=== PATIENT | female | born 1935 | race Caucasian/White ===

== ENCOUNTER 2016-04-10 01:30 | Inpatient (IN) | payer MEDICARE ==
[2016-04-10] VITALS (12 sets, daily range): BP systolic 146–202; BP diastolic 67–123; PULSE 83–104; RESP 15–27; TEMP 97.8–98.2; O2SAT 88–98
[~2016-04-10] VITALS: Ht 149.9 cm; Wt 65.5 kg
--- NOTE | 2016-04-10 02:13 | PD ---
HPI Chief Complaint: Respiratory Distress Time Seen by Provider: 01:55 Travel History International Travel<30 days: No Contact w/Intl Traveler<30days: No Traveled to known affect area: No History of Present Illness HPI Patient is a 81-year-old female with history of A. fib, hypertension, and hyperlipidemia and possibly COPD, presents to emergency room with complaints of shortness of breath. Patient reports that for the past 4 days, she has been having increased shortness of breath. Reports that she is short of breath at rest as well as exertion. Reports that she has been wheezing for the past 4 days. Reports that she flew in from [place] today, reports that she began coughing, reports productive cough since today. Patient denies fevers or chills. Reports no chest pain. Reports that she used to be a past smoker, reports that she may possibly have COPD. Patient reports that she has been wheezing diffusely for the past 4 days, reports that nothing has made her symptoms better or worse. Reports no sick contacts. Patient does not use oxygen at home [facility] Social History Alcohol Use: No Tobacco Use: No Allergies-Medications (Allergen,Severity, Reaction): Coded Allergies: Amoxicillin (Verified Allergy, Severe, 04/10/16) Levaquin (Verified Allergy, Severe, 04/10/16) Reported Meds & Prescriptions Reported Meds & Active Scripts Active Reported Hydrocodone-Acetaminophen 5-325 mg Tab 1 Tab PO Q6HR PRN Warfarin 1 Mg Tab Unknown Dose PO DIRECTED Crestor (Rosuvastatin Calcium) 5 Mg Tab 5 Mg PO EVERY OTHER DAY Digox (Digoxin) 0.125 Mg Tab 0.125 Mcg PO EVERY OTHER DAY Furosemide 20 Mg Tab 20 Mg PO DAILY Valsartan 160 Mg Tab 160 Mg PO DAILY Diltiazem (Diltiazem HCl) 120 Mg Tab 240 Mg PO DAILY Review of Systems General / Constitutional: No: Fever, Chills Eyes: No: Visual changes HENT: No: Headaches Cardiovascular: No: Chest Pain or Discomfort Respiratory: Positive: Cough, Shortness of Breath, Wheezing Gastrointestinal: No: Abdominal Pain Genitourinary: No: Dysuria Musculoskeletal: No: Pain Skin: No Rash Neurologic: No: Weakness Psychiatric: No: Depression Endocrine: No: Polydipsia Hematologic/Lymphatic: No: Easy Bruising Physical Exam Narrative GENERAL: Patient with moderate distress SKIN: Warm and dry. HEAD: Atraumatic. Normocephalic. EYES: Pupils equal and round. No scleral icterus. No injection or drainage. ENT: No nasal bleeding or discharge. Mucous membranes pink and moist. NECK: Trachea midline. No JVD. CARDIOVASCULAR: Irregular irregular, tachycardic. No murmur appreciated. RESPIRATORY: Patient wheezing diffusely on exam. Clear to auscultation. Breath sounds equal bilaterally. GASTROINTESTINAL: Abdomen soft, non-tender, nondistended. Hepatic and splenic margins not palpable. MUSCULOSKELETAL: No obvious deformities. No clubbing. No cyanosis. No edema. NEUROLOGICAL: Awake and alert. No obvious cranial nerve deficits. Motor grossly within normal limits. Normal speech. PSYCHIATRIC: Appropriate mood and affect; insight and judgment normal. Data Data Last Documented VS Vital Signs Date Time Temp Pulse Resp B/P Pulse Ox O2 Delivery O2 Flow Rate FiO2 04/10/16 04:30 83 16 163/72 95 Room Air 04/10/16 02:29 2 04/10/16 01:44 97.8 Orders Complete Blood Count With Diff (04/10/16 02:01) Comprehensive Metabolic Panel (04/10/16 02:01) B-Type Natriuretic Peptide (04/10/16 02:01) Act Partial Throm Time (Ptt) (04/10/16 02:01) Prothrombin Time / Inr (Pt) (04/10/16 02:01) Magnesium (Mg) (04/10/16 02:01) Ckmb (Isoenzyme) Profile (04/10/16 02:01) Troponin I (04/10/16 02:01) Urinalysis - C+S If Indicated (04/10/16 02:01) Influenzae A/B Antigen (04/10/16 02:01) Blood Culture (04/10/16 02:01) Iv Access Insert/Monitor (04/10/16 02:01) Ecg Monitoring (04/10/16 02:01) Oximetry (04/10/16 02:01) Oxygen Administration (04/10/16 02:01) Chest, Single Ap (04/10/16 02:01) Sodium Chloride 0.9% Flush (Ns Flush) (04/10/16 02:15) Methylprednisolone So Succ Inj (Solumedr (04/10/16 02:15) Albuterol-Ipratropium Neb (Duoneb Neb) (04/10/16 02:15) Sodium Chlorid 0.9% 500 Ml Inj (Ns 500 M (04/10/16 02:15) Aztreonam Inj (Azactam Inj) (04/10/16 04:30) Azithromycin Inj (Zithromax Inj) (04/10/16 04:30) Admit Order (Ed Use Only) (04/10/16 04:33) Labs Laboratory Tests Test 04/10/16 04/10/16 02:21 03:30 White Blood Count 8.0 TH/MM3 Red Blood Count 4.29 MIL/MM3 Hemoglobin 14.2 GM/DL Hematocrit 43.0 % Mean Corpuscular Volume 100.1 FL Mean Corpuscular Hemoglobin 33.2 PG Mean Corpuscular Hemoglobin 33.1 % Concent Red Cell Distribution Width 13.3 % Platelet Count 161 TH/MM3 Mean Platelet Volume 10.1 FL Neutrophils (%) (Auto) 63.3 % Lymphocytes (%) (Auto) 18.0 % Monocytes (%) (Auto) 8.2 % Eosinophils (%) (Auto) 9.4 % Basophils (%) (Auto) 1.1 % Neutrophils # (Auto) 5.1 TH/MM3 Lymphocytes # (Auto) 1.4 TH/MM3 Monocytes # (Auto) 0.7 TH/MM3 Eosinophils # (Auto) 0.8 TH/MM3 Basophils # (Auto) 0.1 TH/MM3 CBC Comment DIFF FINAL Differential Comment Prothrombin Time 25.4 SEC Prothromb Time International 2.2 RATIO Ratio Activated Partial 40.8 SEC Thromboplast Time Sodium Level 141 MEQ/L Potassium Level 4.0 MEQ/L Chloride Level 107 MEQ/L Carbon Dioxide Level 25.5 MEQ/L Anion Gap 9 MEQ/L Blood Urea Nitrogen 20 MG/DL Creatinine 0.90 MG/DL Estimat Glomerular Filtration 60 ML/MIN Rate Random Glucose 119 MG/DL Calcium Level 10.1 MG/DL Magnesium Level 2.0 MG/DL Total Bilirubin 0.6 MG/DL Aspartate Amino Transf 17 U/L (AST/SGOT) Alanine Aminotransferase 24 U/L (ALT/SGPT) Alkaline Phosphatase 70 U/L Total Creatine Kinase 53 U/L Troponin I LESS THAN 0.02 NG/ML B-Type Natriuretic Peptide 489 PG/ML Total Protein 7.2 GM/DL Albumin 4.2 GM/DL Urine Color YELLOW Urine Turbidity CLEAR Urine pH 5.5 Urine Specific [place] 1.023 Urine Protein 30 mg/dL Urine Glucose (UA) NEG mg/dL Urine Ketones TRACE mg/dL Urine Occult Blood TRACE Urine Nitrite NEG Urine Bilirubin NEG Urine Urobilinogen LESS THAN 2.0 MG/DL Urine Leukocyte Esterase SMALL Urine RBC 3 /hpf Urine WBC 9 /hpf Urine Squamous Epithelial 1 /hpf Cells Urine Bacteria RARE /hpf Urine Hyaline Casts 1 /lpf Urine Mucus FEW /lpf Microscopic Urinalysis Comment CULTURE INDICATED MDM Medical Decision Making Medical Screen Exam Complete: Yes Emergency Medical Condition: Yes Interpretation(s) EKG: afib at 89bpm, qt/qtc: 306/353 Vital Signs Date Time Temp Pulse Resp B/P Pulse Ox O2 Delivery O2 Flow Rate FiO2 04/10/16 01:44 97.8 88 27 196/111 90 Differential Diagnosis pneumonia, copd exacerbation, acs, electrolyte abnormality, influenza Narrative Course 81 year old female who presents to ER with c/o of 4 days of wheezing and sob. Pt with questionable history of COPD. On exam, pt hypoxic with pulse ox of 88-89% on room air, patient wheezing diffusely. Patient most likely with COPD exacerbation with questionable pneumonia EKG, labs, x-ray chest as well as blood cultures obtained. Plan to give patient IV fluids, IV steroids as well as neb treatments, will re- evaluate patient after treatment. Patient reevaluated, reviewed all labs and all studies with patient. Patient reports that she still does not feel well, patient is not comfortable going home. Discussed with her that I will admit her for pneumonia as well as hypoxia as pt was sating 88-89%on room air - she does not use home O2 case reviewed with dr al who accepts pt to service Diagnosis Primary Impression: Pneumonia Qualified Code: J18.9 - Pneumonia of both upper lobes due to infectious organism Additional Impressions: Hypoxia COPD with exacerbation Admitting Information Admitting Physician Requests: Admit Mary Nicole DO Apr 10, 2016 02:13
[2016-04-10] MEDS ORDERED: methylPREDNISolone SOD SUCC 125 MG/2 ML VIAL IVP ONE (02:15)
[2016-04-10] MEDS ORDERED: SODIUM CHLORIDE 0.9% FLUSH 5 ML FLUSH IVF PRN (02:15)
[2016-04-10] MEDS ORDERED: SODIUM CHLORID 0.9% 500 ML INJ 500 ML IV ONE (02:15)
--- NOTE | 2016-04-10 02:22 | RADRPT ---
EXAM DATE/TIME: 04/10/2016 02:14 [facility] COMPARISON: No previous studies available for comparison. INDICATIONS : Pt short of breath. MEDICAL HISTORY : None. SURGICAL HISTORY : None. ENCOUNTER: Initial ACUITY: 1 day PAIN SCORE: 8/10 LOCATION: Bilateral chest FINDINGS: The heart is moderately enlarged. There is indistinctness and fullness of the perihilar region bilat erally suggesting bilateral perihilar infiltrates. No peripheral infiltrate seen. Hyperdensity supe rimposed upon the central mediastinum measuring 1.8 cm, probably representing a calcified mediastinal node. Both hemidiaphragms are well delineated. CONCLUSION: Bilateral perihilar infiltrates, right greater than left. Moderate cardiomegaly. David Christiansen MD on April 10, 2016 at 2:20 Board Certified Radiologist. This report was verified electronically.
[2016-04-10 02:43] LABS: AUTOMATED NEUTROPHIL # 5.1 TH/MM3 (1.8-7.7); BASOPHIL # 0.1 TH/MM3 (0-0.2); BASOPHIL % 1.1 % (0.0-2.0); EOSINOPHIL # 0.8 TH/MM3 (0-0.4); EOSINOPHIL % 9.4 % (0.0-4.0); HEMO FLAGS DIFF FINAL; LYMPHOCYTE # 1.4 TH/MM3 (1.0-4.8); MEAN CELL VOLUME 100.1 FL (80.0-100.0); MEAN CORPUSCULAR HEMOGLOBIN 33.2 PG (27.0-34.0); MEAN CORPUSCULAR HGB CONC 33.1 % (32.0-36.0); MONO % 8.2 % (0.0-8.0); NEUT % 63.3 % (16.0-70.0); PLATELET COUNT 161 TH/MM3 (150-450); RED BLOOD COUNT 4.29 MIL/MM3 (4.00-5.30); RED CELL DISTRIBUTION WIDTH 13.3 % (11.6-17.2)
[2016-04-10] MEDS: RESP: ALBUTEROL 2.5 MG/IPRATROPIUM 0.5 MG NEB (SCH) INH (02:53)
[2016-04-10 03:01] LABS: APTT (PATIENT) 40.8 SEC (24.3-30.1); INTERNATIONAL NORMALIZED RATIO 2.2 RATIO; PROTHROMBIN TIME - PATIENT 25.4 SEC (9.8-11.6)
[2016-04-10 03:06] LABS: ALT (GPT) 24 U/L (10-53); ANION GAP 9 MEQ/L (5-15); AST (GOT) 17 U/L (15-37); BICARBONATE 25.5 MEQ/L (21.0-32.0); BLOOD UREA NITROGEN 20 MG/DL (7-18); CHLORIDE 107 MEQ/L (98-107); GLOMERULAR FILTRATION RATE 60 ML/MIN (>89); SODIUM (NA) 141 MEQ/L (136-145)
[2016-04-10 03:10] LABS: ALKALINE PHOSPHATASE 70 U/L (45-117); TOTAL BILIRUBIN ADULT 0.6 MG/DL (0.2-1.0)
[2016-04-10] MEDS ORDERED: VALS1TAB65 PO (03:57)
[2016-04-10] MEDS ORDERED: DIGO0.127 PO (03:57)
[2016-04-10] MEDS ORDERED: HYDR-3516 PO (03:57)
[2016-04-10] MEDS ORDERED: ROSU5 PO (03:57)
[2016-04-10] MEDS ORDERED: FURO20TA PO (03:57)
[2016-04-10] MEDS ORDERED: DILT120T PO (03:57)
[2016-04-10] MEDS ORDERED: WARF4TAB52 PO (03:57)
[2016-04-10 04:09] LABS: CREATINE KINASE 53 U/L (26-192)
[2016-04-10] MEDS ORDERED: AZITHROMYCIN INJ 500 MG in SODIUM CHLOR 0.9% 250 ML INJ 250 ML IV ONE (04:30)
[2016-04-10] MEDS ORDERED: AZTREONAM INJ 2,000 MG in SODIUM CHLORIDE 0.9% INJ 100 ML IV ONE (04:30)
[2016-04-10 04:39] LABS: BACTERIA, URINE RARE /hpf; BLOOD, URINE TRACE (NEG); COMMENT (UR) CULTURE INDICATED; CULTURE IF INDICATED CULTURE INDICATED; GLUCOSE,URINE NEG (NEG); HYALINE CAST, URINE 1 /lpf (RARE); KETONE, URINE TRACE mg/dL (NEG); MUCUS URINE FEW /lpf (OCC); NITRITE,URINE NEG (NEG); PH, URINE 5.5 (5.0-8.5); SQUAMOUS EPITHELIAL CELL URINE 1 /hpf (0-5); URINE COLOR YELLOW (YELLW/STRAW)
[2016-04-10] MEDS ORDERED: RESP: ALBUTEROL 2.5 MG/IPRATROPIUM 0.5 MG NEB (PRN) NEB (04:45)
[2016-04-10] MEDS ORDERED: ONDANSETRON HCL 4 MG/2 ML VIAL IVP PRN (04:45)
[2016-04-10] MEDS ORDERED: BISACODYL 10 MG SUPP PR PRN (04:45)
[2016-04-10] MEDS ORDERED: ACETAMINOPHEN/HYDROcodone 325 MG/5 MG TAB PO PRN (04:45)
[2016-04-10] MEDS ORDERED: ACETAMINOPHEN 325 MG TAB PO PRN (04:45)
[2016-04-10] MEDS ORDERED: SODIUM CHLORIDE 0.9% FLUSH 5 ML FLUSH FLUSH PRN (04:45)
[2016-04-10] MEDS ORDERED: ACETAMINOPHEN/HYDROcodone 325 MG/10 MG TAB PO PRN (04:45)
--- NOTE | 2016-04-10 05:47 | HHI.HP ---
[facility] Service [facility] Primary Care Physician Non-Staff Admission Diagnosis multilobar pneumonia Diagnoses: (1) COPD (chronic obstructive pulmonary disease) Diagnosis: Principal (2) PNA (pneumonia) Diagnosis: Principal (3) Hypoxia Diagnosis: Principal (4) UTI (urinary tract infection) Diagnosis: Principal (5) A-fib Diagnosis: Principal Travel History International Travel<30 Days: No Contact w/Intl Traveler <30 Da: No Traveled to Known Affected Are: No History of Present Illness This is a 81-year-old female with a PMH of A. nicko on Coumadin, HTN, Hyperlipidemia and COPD who was brought to the ER with complaints of SOB x4 days. Notes associated wheezing and productive cough w/ yellow colored sputum. Denies fever or chills. On arrival, BP 196/111, HR 80, O2 sat 88% on RA, Afebrile. Currently BP 163/72, HR 83, O2 sat 95% on RA. CBC essentially unremarkable. Chemistry essentially unremarkable except for mildly elevated BUN. BNP 49. Troponin negative. UA with UTI. CXR bilateral perihilar infiltrates. S/p Blood Cultures, Zithr/Azactam in ER. Review of Systems Other ROS: 14 point review of systems otherwise negative. Past Family Social History Past Medical History PMH: Reese. nicko on Coumadin, HTN, Hyperlipidemia and COPD Past Surgical History PAST SURGICAL HISTORY: Lumbar Laminectomy Allergies: Coded Allergies: Amoxicillin (Verified Allergy, Severe, 04/10/16) Levaquin (Verified Allergy, Severe, 04/10/16) Family History PAST FAMILY HISTORY: Reviewed. No h/o DM or CAD Social History PAST SOCIAL HISTORY: Negative for alcohol, tobacco or drugs. Physical Exam Vital Signs Vital Signs Date Time Temp Pulse Resp B/P Pulse Ox O2 Delivery O2 Flow Rate FiO2 04/10/16 04:30 83 16 163/72 95 Room Air 04/10/16 03:40 98 17 194/123 97 Room Air 04/10/16 02:29 95 Nasal Cannula 2 04/10/16 02:29 102 18 202/87 94 Nasal Cannula 2 04/10/16 01:44 97.8 88 27 196/111 90 1/7/17 01:40 88 Room Air Physical Exam PE: GENERAL: Elderly white female in no acute distress. HEENT: PERRLA, EOMI. No scleral icterus or conjunctival pallor. No lid lag or facial droop. CARDIOVASCULAR: Irregular irregular. No obvious murmurs to auscultation. No chest tenderness to palpation. RESPIRATORY: No obvious rhonchi. Occasional wheezing. Clear to auscultation. Breath sounds equal bilaterally. GASTROINTESTINAL: Abdomen soft, non-tender, nondistended. BS normal. MUSCULOSKELETAL: Extremities without clubbing, cyanosis, or edema. No obvious deformities. NEUROLOGICAL: Awake, alert. No focal neurologic deficits. Moving both upper and lower extremities spontaneously. Laboratory Laboratory Tests Test 04/10/16 04/10/16 02:21 03:30 White Blood Count 8.0 Red Blood Count 4.29 Hemoglobin 14.2 Hematocrit 43.0 Mean Corpuscular Volume 100.1 Mean Corpuscular Hemoglobin 33.2 Mean Corpuscular Hemoglobin 33.1 Concent Red Cell Distribution Width 13.3 Platelet Count 161 Mean Platelet Volume 10.1 Neutrophils (%) (Auto) 63.3 Lymphocytes (%) (Auto) 18.0 Monocytes (%) (Auto) 8.2 Eosinophils (%) (Auto) 9.4 Basophils (%) (Auto) 1.1 Neutrophils # (Auto) 5.1 Lymphocytes # (Auto) 1.4 Monocytes # (Auto) 0.7 Eosinophils # (Auto) 0.8 Basophils # (Auto) 0.1 CBC Comment DIFF FINAL Differential Comment Prothrombin Time 25.4 Prothromb Time International 2.2 Ratio Activated Partial 40.8 Thromboplast Time Sodium Level 141 Potassium Level 4.0 Chloride Level 107 Carbon Dioxide Level 25.5 Anion Gap 9 Blood Urea Nitrogen 20 Creatinine 0.90 Estimat Glomerular Filtration 60 Rate Random Glucose 119 Calcium Level 10.1 Magnesium Level 2.0 Total Bilirubin 0.6 Aspartate Amino Transf 17 (AST/SGOT) Alanine Aminotransferase 24 (ALT/SGPT) Alkaline Phosphatase 70 Total Creatine Kinase 53 Troponin I LESS THAN 0.02 B-Type Natriuretic Peptide 489 Total Protein 7.2 Albumin 4.2 Urine Color YELLOW Urine Turbidity CLEAR Urine pH 5.5 Urine Specific [place] 1.023 Urine Protein 30 Urine Glucose (UA) NEG Urine Ketones TRACE Urine Occult Blood TRACE Urine Nitrite NEG Urine Bilirubin NEG Urine Urobilinogen LESS THAN 2.0 Urine Leukocyte Esterase SMALL Urine RBC 3 Urine WBC 9 Urine Squamous Epithelial 1 Cells Urine Bacteria RARE Urine Hyaline Casts 1 Urine Mucus FEW Microscopic Urinalysis Comment CULTURE INDICATED Date/Time Procedure Status Source Growth 04/10/16 03:30 Urine Culture Received Urine Clean Catch Pending 04/10/16 02:21 Influenza Types A,B Antigen (RISHABH) Received Nasal Aspirate Pending 04/10/16 02:00 Aerobic Blood Culture Received Blood Peripheral Pending 04/10/16 02:00 Anaerobic Blood Culture Received Blood Peripheral Pending Result Diagram: 04/10/1622004/10/16220 Assessment and Plan Problem List: (1) COPD (chronic obstructive pulmonary disease) ICD Code: J44.9 Status: Acute (2) PNA (pneumonia) ICD Code: J18.9 Status: Acute (3) Hypoxia ICD Code: R09.02 Status: Acute (4) UTI (urinary tract infection) ICD Code: N39.0 Status: Acute (5) A-fib ICD Code: I48.91 Status: Acute Assessment and Plan A/P: 1. COPD: Chronic Respiratory Failure w/ Acute Exacerbation. +wheezing, hypoxia. Solu-Medrol, DuoNeb, Symbicort, Mucinex. Check Sputum Cultures. 2. PNA: CXR w/ bilateral perihilar infiltrates, images reviewed by me. S/p Zithro/Azactam in ER. Continue w/ IV Abx, DuoNeb. 3. Hypoxia: Secondary to above, O2 sat 88% on RA upon arrival, currently 95-97 % on RA. 4. UTI: U/a w/ UTI. Continue w/ IV Abx as above for urinary coverage. 5. A-fib: Chronic. On Coumadin. Resume home Digoxin, Diltiazem and Coumadin. INR therapeutic at 2.2. 6. DVT Prophylaxis: On Coumadin as above. 7. Social work for DC planning as needed. 8. Case discussed at length with ER physician. Physician Certification 2 Midnight Certification Type: Admission for Inpatient Services Order for Inpatient Services The services are ordered in accordance with Medicare regulations or non- Medicare payer requirements, as applicable. In the case of services not specified as inpatient-only, they are appropriately provided as inpatient services in accordance with the 2-midnight benchmark. Estimated LOS (days): 2 days is the estimated time the patient will need to remain in the hospital, assuming treatment plan goals are met and no additional complications. Post-Hospital Plan: Not yet determined Sandee Granado MD Apr 10, 2016 05:47
[2016-04-10] MEDS: methylPREDNISolone SOD SUCC 40 MG/1 ML VIAL IV PUSH SCH ×3 (05:52→19:08)
[2016-04-10] MEDS: RESP: ALBUTEROL 2.5 MG/IPRATROPIUM 0.5 MG NEB (SCH) NEB ×4 (06:04→20:13)
[2016-04-10] MEDS ORDERED: DIGOXIN 0.125 MG TAB PO SCH (09:00)
[2016-04-10] MEDS ORDERED: ATORVASTATIN 10 MG TAB PO SCH (09:00)
[2016-04-10] MEDS: FUROSEMIDE 20 MG TAB PO SCH (09:59)
[2016-04-10] MEDS: VALSARTAN 160 MG TAB PO SCH (09:59)
[2016-04-10] MEDS: DILTIAZEM-CD 240 MG CAP ER PO SCH (09:59)
[2016-04-10] MEDS: BUDESONIDE-FORMOTEROL 160/4.5 MCG INHALER INH SCH ×2 (09:59→20:58)
[2016-04-10] MEDS: guaiFENesin E.R. 600 MG TAB PO SCH ×2 (09:59→20:57)
[2016-04-10] MEDS: SODIUM CHLORIDE 0.9% FLUSH 5 ML FLUSH FLUSH SCH ×2 (10:00→20:58)
[2016-04-10] MEDS: AZTREONAM INJ 1,000 MG in SODIUM CHLORIDE 0.9% INJ 100 ML IV SCH ×2 (13:08→20:57)
--- NOTE | 2016-04-10 14:34 | EKG ---
Date Performed: 04/10/2016 Time Performed: 01:57:36 PTAGE: 81 years EKG: ATRIAL FIBRILLATION ANTEROSEPTAL MYOCARDIAL INFARCTION Undulating baseline ABNORMAL ECG NO PREVIOUS TRACING DOCTOR: Fran Mc Interpretating Date/Time 04/10/2016 14:34:08
[2016-04-11] VITALS: BP 141/78; PULSE 97; RESP 20; TEMP 97.9; O2SAT 95
[2016-04-11] MEDS: methylPREDNISolone SOD SUCC 40 MG/1 ML VIAL IV PUSH SCH ×3 (00:13→12:14)
[2016-04-11] MEDS: AZTREONAM INJ 1,000 MG in SODIUM CHLORIDE 0.9% INJ 100 ML IV SCH ×2 (03:57→12:14)
[2016-04-11 04:00] VITALS: BP 161/78; PULSE 88; RESP 20; TEMP 97.5; O2SAT 93
[2016-04-11] MEDS ORDERED: AZITHROMYCIN INJ 500 MG in SODIUM CHLOR 0.9% 250 ML INJ 250 ML IV SCH (05:00)
[2016-04-11 08:00] VITALS: BP 136/65; PULSE 85; RESP 17; TEMP 97.4; O2SAT 94
[2016-04-11] MEDS: RESP: ALBUTEROL 2.5 MG/IPRATROPIUM 0.5 MG NEB (SCH) NEB ×2 (08:11→11:36)
[2016-04-11 08:46] LABS: BASOPHIL % 0.2 % (0.0-2.0); HEMO FLAGS DIFF FINAL; LYMPH % 2.8 % (9.0-44.0); LYMPHOCYTE # 0.4 TH/MM3 (1.0-4.8); MEAN CELL VOLUME 98.5 FL (80.0-100.0); MEAN CORPUSCULAR HEMOGLOBIN 32.9 PG (27.0-34.0); MEAN CORPUSCULAR HGB CONC 33.4 % (32.0-36.0); MONO % 2.8 % (0.0-8.0); NEUT % 94.2 % (16.0-70.0); PLATELET COUNT 152 TH/MM3 (150-450); RED BLOOD COUNT 3.86 MIL/MM3 (4.00-5.30); RED CELL DISTRIBUTION WIDTH 13.6 % (11.6-17.2); WHITE BLOOD COUNT 13.8 TH/MM3 (4.0-11.0)
[2016-04-11 08:54] LABS: INTERNATIONAL NORMALIZED RATIO 2.4 RATIO; PROTHROMBIN TIME - PATIENT 27.5 SEC (9.8-11.6)
[2016-04-11] MEDS: BUDESONIDE-FORMOTEROL 160/4.5 MCG INHALER INH SCH (09:00)
[2016-04-11] MEDS: VALSARTAN 160 MG TAB PO SCH (09:00)
[2016-04-11] MEDS: FUROSEMIDE 20 MG TAB PO SCH (09:00)
[2016-04-11] MEDS: guaiFENesin E.R. 600 MG TAB PO SCH (09:00)
[2016-04-11] MEDS: SODIUM CHLORIDE 0.9% FLUSH 5 ML FLUSH FLUSH SCH (09:00)
[2016-04-11] MEDS: DILTIAZEM-CD 240 MG CAP ER PO SCH (09:00)
[2016-04-11 09:18] LABS: ALKALINE PHOSPHATASE 60 U/L (45-117); ALT (GPT) 37 U/L (10-53); ANION GAP 11 MEQ/L (5-15); AST (GOT) 34 U/L (15-37); BICARBONATE 24.3 MEQ/L (21.0-32.0); BLOOD UREA NITROGEN 22 MG/DL (7-18); CHLORIDE 107 MEQ/L (98-107); GLOMERULAR FILTRATION RATE 59 ML/MIN (>89); SODIUM (NA) 142 MEQ/L (136-145); TOTAL BILIRUBIN ADULT 0.5 MG/DL (0.2-1.0)
[2016-04-11] MEDS ORDERED: INFLUENZA VIRUS VACCINE (QUADRIVALENT) 0.5 ML SYR IM ONE (10:00)
[2016-04-11 12:00] VITALS: BP 153/71; PULSE 98; RESP 19; TEMP 97.4; O2SAT 96
[2016-04-11] MEDS ORDERED: FURO40TA PO (14:13)
[2016-04-11] MEDS ORDERED: SYMB160A INH (14:13)
[2016-04-11] MEDS ORDERED: DOXY100C PO (14:13)
[2016-04-11] MEDS ORDERED: PRED20 PO (14:13)
[2016-04-11] MEDS ORDERED: AZIT250T3 PO (14:13)
--- NOTE | 2016-04-11 14:24 | HHI.PR ---
Subjective Remarks Patient seen in follow-up for COPD exacerbation, hypoxia, pneumonia. She reports that she is feeling much better. Currently on room air. Breathing comfortably. Comfortable with finishing treatment at home. Objective Vitals Vital Signs Date Time Temp Pulse Resp B/P Pulse Ox O2 Delivery O2 Flow Rate FiO2 04/11/16 12:00 97.4 98 19 153/71 96 04/11/16 08:00 Room Air 04/11/16 08:00 97.4 85 17 136/65 94 04/11/16 04:00 97.5 88 20 161/78 93 04/11/16 00:00 97.9 97 20 141/78 95 04/10/16 20:09 101 04/10/16 20:00 98.2 100 20 147/73 93 04/10/16 19:45 Room Air 04/10/16 15:00 98.2 89 18 161/75 96 I/O 04/10/16 04/10/16 04/10/16 04/11/16 04/11/16 04/11/16 07:00 15:00 23:00 07:00 15:00 23:00 Intake Total 706 ml 220 ml 120 ml Balance 706 ml 220 ml 120 ml Intake Oral 340 ml 220 ml 120 ml IV Total 366 ml # Voids 1 2 2 1 # Bowel Movements 1 0 0 Result Diagram: 04/11/16 0800 04/11/16 0800 Imaging Last Impressions Chest X-Ray 04/10/16 0201 Signed Impressions: Service Date/Time: Sunday, April 10, 2016 02:14 - CONCLUSION: Bilateral perihilar infiltrates, right greater than left. Moderate cardiomegaly. David Christiansen MD Objective Remarks GENERAL: This is a well-nourished, well-developed patient, in no apparent distress. CARDIOVASCULAR: Normal rate and regular rhythm without murmurs, gallops, or rubs. RESPIRATORY: Diminished breath sounds at the bases. Clear to auscultation bilaterally except for very faint wheezing. GASTROINTESTINAL: Abdomen soft, non-tender, non-distended. Normal active bowel sounds MUSCULOSKELETAL: Extremities without cyanosis, or edema. NEURO: Alert & Oriented x4 to person, place, time, situation. Moves all ext x4 PSYCH: Appropriate mood and affect. A/P Problem List: (1) COPD (chronic obstructive pulmonary disease) ICD Code: J44.9 Status: Acute (2) PNA (pneumonia) ICD Code: J18.9 Status: Acute (3) Hypoxia ICD Code: R09.02 Status: Acute (4) UTI (urinary tract infection) ICD Code: N39.0 Status: Acute (5) A-fib ICD Code: I48.91 Status: Acute Assessment and Plan 81-year-old female with: COPD exacerbation secondary to pneumonia: Patient presented with wheezing, hypoxia and evidence of pneumonia on chest x-ray. She quickly improved with steroids, antibiotics, and oxygen support. Patient is on room air and breathing comfortably. She feels good to go home. She is stable for discharge. - Patient is discharged to complete treatment with antibiotics on doxycycline and azithromycin. - She should be on a maintenance medication. She is discharged on Symbicort. Chronic atrial fibrillation: Continue home dose digoxin, diltiazem and Coumadin. Congestive heart failure with mild exacerbation: BNP elevated at 489. Mild bilateral lower extremity edema. Advised the patient to increase Lasix to 40 mg daily. She is advised to follow-up with her primary care physician and monitor her fluid intake and weight. Discharge home in good condition Diet: Heart healthy Activity: Regular as tolerated Follow-up: With PCP as scheduled Meds: Per med rec. Britton Fay MD Apr 11, 2016 14:24
== END 2016-04-11 15:25 | disposition home or self-care (01) | DRG 190 ==
LOC: NEPE 01:30 → NEDA 04:35 → NEDH 08:07 → N04A 14:19
PROVIDERS: ADMIT Family Medicine; ATTEND Family Medicine
DX: J44.0 Chronic obstructive pulmonary disease with (acute) lower respiratory infection (principal); J18.9 Pneumonia, unspecified organism; J96.11 Chronic respiratory failure with hypoxia; N39.0 Urinary tract infection, site not specified; I48.2 Chronic atrial fibrillation; I50.9 Heart failure, unspecified; J44.1 Chronic obstructive pulmonary disease with (acute) exacerbation; Z79.01 Long term (current) use of anticoagulants; I10 Essential (primary) hypertension; E78.5 Hyperlipidemia, unspecified; Z87.891 Personal history of nicotine dependence; Z23 Encounter for immunization
CPT/HCPCS: 71010; 80053; 81001; 82550; 83735; 83880; 84484; 85025; 85610; 85730; 87040; 87086; 87186; 87205; 87804; 90471; 90686; 93005; 94640; 94664; 96361; 96374; 96375; G0008; J0456; J2920; J2930; J7040; J7050; Q2038